=== PATIENT | female | born 1975 | race Caucasian/White ===

== ENCOUNTER 2018-10-07 09:55 | Outpatient (CLI) | END 2018-10-07 09:56 | disposition home or self-care (01) | LOC: RHC-LAB 09:55 → FCC-LAB 09:56 | PROVIDERS: ATTEND Family Medicine | DX: D50.9 Iron deficiency anemia, unspecified (principal); R73.9 Hyperglycemia, unspecified | CPT/HCPCS: 36415; 82728; 83037; 83540; 83550 ==